=== PATIENT | male | born 2000 ===

== ENCOUNTER 2023-04-18 20:33 | Emergency (ER) | payer SELFPAY ==
[2023-04-18] MEDS ORDERED: Lidocaine 1% 30 ML SDV INFILT ONE (20:50)
[2023-04-18] MEDS ORDERED: Doxycycline 100 MG Cap ONE (21:00)
[2023-04-18] MEDS ORDERED: Bacitracin Oint 1 GM U/D Packet TOP ONE (21:36)
== END 2023-04-18 21:23 | disposition home or self-care (01) ==
LOC: LB.ED 20:33
DX: S41.151A Open bite of right upper arm, initial encounter (principal); F17.210 Nicotine dependence, cigarettes, uncomplicated; Z88.0 Allergy status to penicillin; W54.0XXA Bitten by dog, initial encounter
CPT/HCPCS: 12002; 99283; A9270

== ENCOUNTER 2024-01-19 14:14 | Emergency (ER) | payer SELFPAY ==
[2024-01-19] MEDS ORDERED: traMADol 50 MG Tab ONE (16:00)
[2024-01-19] MEDS: Ketorolac 30 MG/ML SDV IM ONE (16:03)
[2024-01-19] MEDS: Ketorolac 30 MG/ML SDV ONE (16:03)
[2024-01-19] MEDS: Ibuprofen 600 MG Tab PO ONE (16:04)
[2024-01-19] MEDS ORDERED: Ibuprofen 600 MG Tab ONE (16:04)
== END 2024-01-19 16:30 | disposition home or self-care (01) ==
LOC: LB.ED 14:14
DX: S82.301A Unspecified fracture of lower end of right tibia, initial encounter for closed fracture (principal); F17.210 Nicotine dependence, cigarettes, uncomplicated; Z88.0 Allergy status to penicillin; W13.2XXA Fall from, out of or through roof, initial encounter; Y93.89 Activity, other specified
CPT/HCPCS: 73610-RT; 99283; A9270-GY